=== PATIENT | male | born 1990 | race Caucasian/White ===

== ENCOUNTER 2018-03-20 21:55 | Emergency (ER) | END 2018-03-21 02:12 | disposition home or self-care (01) ==

== ENCOUNTER 2018-08-06 15:29 | Emergency (ER) | payer OTHER ==
[~2018-08-06] VITALS: Ht 177.8 cm; Wt 83.6 kg
[~2018-08-06 15:29] MED LIST: NAPR-985 PO; POLY10DR19 LEFT EYE
[2018-08-06 15:32] VITALS: Ht 177.8 cm; Wt 83.6 kg
--- NOTE | 2018-08-06 17:48 | ERD ---
ER Documentation Chief Complaint Chief Complaint AP since Saturday with N/V/diarrhea HPI 28-year-old male, presents the emergency complaining of diffuse abdominal pain that started 3 days ago, associated with nausea, vomiting and nonbloody nonmucous diarrhea. Patient has been taking [id number] medication without improvement of the symptoms. He denies fevers, no chills, no chest pain, no shortness of breath ROS All systems reviewed and are negative except as per history of present illness. Medications Home Meds Active Scripts Ranitidine Hcl* (Zantac*) 150 Mg Tablet, 150 MG PO BID PRN for EPIGASTRIC PAIN, #10 TAB Prov:FLO MONACO MD 08/06/18 Acetaminophen* (Tylenol*) 325 Mg Tablet, 2 TAB PO Q8 PRN for PAIN AND OR ELEVATED TEMP, #20 TAB Prov:FLO MONACO MD 08/06/18 Ciprofloxacin Hcl* (Ciprofloxacin Hcl*) 500 Mg Tablet, 500 MG PO BID for 7 Days, TAB Prov:FLO MONACO MD 08/06/18 Naproxen* (Naprosyn*) 500 Mg Tablet, 500 MG PO BID PRN for PAIN AND/OR INFLAMMATION, #30 TAB Prov:RALPH MATIAS 03/21/18 Polymyxin B Sulfate-TMP* (Polymyxin B-TMP Eye Drops*) 10 Ml Drops, 1 DROP LEFT EYE QID for 7 Days, EA Prov:IVAN LYONS DO 11/14/15 Allergies Allergies: Coded Allergies: No Known Allergy (Unverified , 11/14/15) PMhx/Soc Hx Alcohol Use: No Hx Substance Use: Yes Hx Tobacco Use: No FmHx Family History: No diabetes, No coronary disease Physical Exam Vitals Vital Signs Date Temp Pulse Resp B/P (MAP) Pulse Ox O2 O2 Flow FiO2 Time Delivery Rate 08/06/18 98.2 58 19 132/58 98 Room Air 20:09 (82) 08/06/18 98.6 77 20 122/62 99 15:32 (82) Physical Exam Const: No acute distress Head: Atraumatic Eyes: Normal Conjunctiva ENT: Normal External Ears, Nose and Mouth. Neck: Full range of motion. No meningismus. Resp: Clear to auscultation bilaterally Cardio: Regular rate and rhythm, no murmurs Abd: Soft, tender to palpation in the right lower quadrant, no definitive peritoneal signs. Normal bowel sounds Skin: No petechiae or rashes Back: No midline or flank tenderness Ext: No cyanosis, or edema Neur: Awake and alert Psych: Normal Mood and Affect Result Diagram: 08/06/18183708/06/181836 Results 24 hrs Laboratory Tests Test 08/06/18 18:37 08/06/18 18:38 Urine Color ALEXANDRA Urine Clarity SLIGHTLY CLOUDY Urine pH 5.0 Urine Specific [place] 1.029 Urine Ketones NEGATIVE mg/dL Urine Nitrite NEGATIVE mg/dL Urine Bilirubin NEGATIVE mg/dL Urine Urobilinogen 2+ mg/dL Urine Leukocyte Esterase NEGATIVE [place]/ul Urine Microscopic RBC 1 /HPF Urine Microscopic WBC 10 /HPF Urine Calcium Oxalate Crystals MANY /HPF Urine Mucus MODERATE /HPF Urine Hemoglobin NEGATIVE mg/dL Urine Glucose NEGATIVE mg/dL Urine Total Protein NEGATIVE mg/dl Sodium Level 142 mmol/L Potassium Level 4.0 mmol/L Chloride Level 102 mmol/L Carbon Dioxide Level 30 mmol/L Anion Gap 10 Blood Urea Nitrogen 15 mg/dl Creatinine 0.80 mg/dl Est Glomerular Filtrat Rate mL/min > 60 mL/min Glucose Level 90 mg/dl Calcium Level 9.6 mg/dl Total Bilirubin 1.5 mg/dl Direct Bilirubin 0.00 mg/dl Indirect Bilirubin 1.5 mg/dl Aspartate Amino Transf (AST/SGOT) 124 IU/L Alanine Aminotransferase (ALT/SGPT) 102 IU/L Alkaline Phosphatase 85 IU/L Total Protein 7.4 g/dl Albumin 4.3 g/dl Globulin 3.10 g/dl Albumin/Globulin Ratio 1.38 Lipase 56 U/L White Blood Count 5.3 10^3/ul Red Blood Count 4.82 10^6/ul Hemoglobin 13.7 g/dl Hematocrit 42.4 % Mean Corpuscular Volume 88.0 fl Mean Corpuscular Hemoglobin 28.4 pg Mean Corpuscular Hemoglobin Concent 32.3 g/dl Red Cell Distribution Width 12.2 % Platelet Count 219 10^3/UL Mean Platelet Volume 9.8 fl Immature Granulocytes % 0.200 % Neutrophils % 54.6 % Lymphocytes % 29.8 % Monocytes % 12.9 % Eosinophils % 2.3 % Basophils % 0.2 % Nucleated Red Blood Cells % 0.0 /100WBC Immature Granulocytes # 0.010 10^3/ul Neutrophils # 2.9 10^3/ul Lymphocytes # 1.6 10^3/ul Monocytes # 0.7 10^3/ul Eosinophils # 0.1 10^3/ul Basophils # 0.0 10^3/ul Nucleated Red Blood Cells # 0.0 10^3/ul Current Medications Medications Dose Sig/Vin Start Time Status Last (Trade) Ordered Route PRN Stop Time Admin Dose Reason Admin Sodium 1,000 ml @ Q1H STAT 08/06/18 DC 08/06/18 Chloride 1,000 mls/hr IV 18:09 18:39 08/06/18 19:08 Ondansetron 4 mg ONCE STAT 08/06/18 DC 08/06/18 HCl (Zofran IV 18:09 18:39 Inj) 08/06/18 18:20 Famotidine 20 mg ONCE STAT 08/06/18 DC 08/06/18 (Pepcid Iv) IV 18:09 18:39 08/06/18 18:20 500 mg ONCE ONCE 08/06/18 DC 08/06/18 Ciprofloxacin PO 20:00 19:39 (Cipro) 08/06/18 20:01 DIAGNOSTIC IMAGING REPORT Patient: BAUDILIO DODGE : 1990 Age: 28 Sex: M MR #: [id number] DOS: 08/06/181808 Ordering MD: FLO MONACO MD Location: E Room/Bed: PROCEDURE: CT abdomen and pelvis without contrast. CLINICAL INDICATION: Abdominal Pain TECHNIQUE: CT scan of the abdomen and pelvis without contrast was performed and is reconstructed at 2.5 mm contiguous axial intervals from the dome of the diaphragm to the inferior pubic rami.. The patient was scanned without intravenous contrast. Sagittal and coronal reformatted images were obtained from the axial source images. The calculated radiation dose measures 583 mGy centimeters. The CTDI measures 9.3 mGy. Individualized dose optimization technique was used for the performance of this exam. This included 1. Automated exposure control. 2. Adjustment of the mA and / or kV according to the patient's size. 3. Use of iterative reconstructed technique. COMPARISON: None. FINDINGS: The lung bases are clear of any infiltrate or nodule. No effusion is seen. The liver is of normal size, contour and attenuation with no mass or ductal dilatation. No gallstones are visualized. No splenic, adrenal or pancreatic abnormalities present. Kidneys are of normal size and contour. No hydronephrosis, calculus or masses seen. Ureters are of normal course and caliber with no stone. No bladder mass or stone is present. Prostate and seminal vesicles are normal. There is no aneurysm. No adenopathy is present. No bowel mass or obstruction is present. The appendix is normal. No phlegmon, ascites or pneumoperitoneum is visualized. There is T12-L1 degenerative disc narrowing. IMPRESSION: No evidence of urolithiasis, obstructive uropathy, diverticulitis or appendicitis. .Roberto Carlos Higgins MD, MD Date Time Electronically viewed and signed by .Roberto Carlos Higgins MD, MD on 08/06/2018 19:21 .A/ CC: FLO MONACO MD [phone] Procedures/MDM Vital signs stable. Differential diagnosis include but not limited to: UTI, colitis, gastroenteritis, kidney stones, irritable bowel syndrome, inflammatory bowel syndrome, malabsorption syndrome, cholelithiasis, food intolerance, medic ation side effect, pancreatitis, diverticulitis, bowel obstruction. Physical examination and clinical presentation consistent most likely with acute gastroenteritis with incidental finding of UTI. During the ED course the patient remained stable, no new complaints. The patient received treatment with IV fluids and IV medications presenting overall improvement of the symptoms. Results and clinical impression discussed with the patient who agrees with management. The patient is stable to be treated outpatient and will be discharged home; some side effects of prescribed medications (headache, rash, nausea, vomiting, diarrhea, drowsiness, habituation, bleeding, hypertension, interactions with other medications) were reviewed. Follow up with the primary care provider in the next 48h is recommended. If symptoms persist, worsen or new symptoms develop, then patient should return to the ED immediately. Instructions explained and given directly by me to the patient with acknowledgment and demonstrated understanding. Disclaimer: Inadvertent spelling and grammatical errors are likely due to EHR/dictation software use and do not reflect on the overall quality of patient care. Also, please note that the electronic time recorded on this note does not necessarily reflect the actual time of the patient encounter. Departure Diagnosis: Primary Impression: Abdominal pain Additional Impressions: Acute gastroenteritis UTI (urinary tract infection) Condition: Stable Patient Instructions: Understanding Urinary Tract Infections (UTIs) Additional Instructions: Thank you very much for allowing us to participate in your care. Your health and safety is our top priority at [facility]. Call your primary care doctor TOMORROW for an appointment during the next 2-4 days and bring all the information and medications prescribed. Have prescriptions filled and follow precisely the directions on the label. If the symptoms get worse and your provider is unavailable, return to the Emergency Department immediately. FLO MONACO MD Aug 06, 2018 17:48
[2018-08-06] MEDS ORDERED: ONDANSETRON 4 MG INJ IV STA (18:09)
[2018-08-06] MEDS ORDERED: SOD CHLORIDE 0.9% 1,000 ML IV STA (18:09)
[2018-08-06] MEDS ORDERED: FAMOTIDINE 20 MG INJ IV STA (18:09)
[2018-08-06] MEDS ORDERED: RANI150T35 PO (19:34)
[2018-08-06] MEDS ORDERED: CIPR500T4 PO (19:34)
[2018-08-06] MEDS ORDERED: ACET325T33 PO (19:34)
[2018-08-06] MEDS ORDERED: CIPROFLOXACIN 500 MG TAB PO ONE (20:00)
[2018-08-06 20:09] VITALS: BP 132/58; PULSE 58; RESP 19
== END 2018-08-06 20:12 | disposition home or self-care (01) ==
LOC: FTE 15:29
DX: K52.9 Noninfective gastroenteritis and colitis, unspecified (principal); N39.0 Urinary tract infection, site not specified
CPT/HCPCS: 36415; 74176; 80053; 81001; 83690; 85025; 96361; 96374; 96375; J2405; J7030; Z7502; Z7610; 81003

== ENCOUNTER 2018-11-10 21:11 | Emergency (ER) | payer OTHER ==
[~2018-11-10] VITALS: Ht 182.9 cm; Wt 83.6 kg
[~2018-11-10 21:11] MED LIST changes: +ACET325T33 PO; +CIPR500T4 PO; +RANI150T35 PO
[2018-11-10 21:21] VITALS: Ht 182.9 cm; Wt 83.6 kg
[2018-11-10] MEDS ORDERED: ONDANSETRON 4 MG INJ IV STA ×2 (21:28→22:24)
[2018-11-10] MEDS ORDERED: SOD CHLORIDE 0.9% 1,000 ML IV STA (21:28)
[2018-11-10] MEDS ORDERED: HYDROmorphONE 1 MG/ML SYG IV STA (21:28)
[2018-11-10] MEDS ORDERED: DIAZEPAM 5 MG/ML SYG IV ONE (22:00)
[2018-11-10] MEDS ORDERED: ETOMIDATE 20 MG INJ IV ONE (22:00)
[2018-11-11] MEDS ORDERED: IBUP800T48 PO (00:09)
--- NOTE | 2018-11-11 00:09 | ERD ---
ER Documentation Chief Complaint Chief Complaint LEFT SHOUDLER PAIN HPI This is a 28-year-old male with left shoulder pain status post mechanical fall. He says his shoulder popped out while he was practicing judo. He is unable to b ring his arm and abduct his arm. Is kept in a flexed position above his head. Denies any previous history of shoulder dislocation. Denies any head trauma. Denies any other current complaints. ROS All systems reviewed and are negative except as per history of present illness. Medications Home Meds Discontinued Scripts Ranitidine Hcl* (Zantac*) 150 Mg Tablet, 150 MG PO BID PRN for EPIGASTRIC PAIN, #10 TAB Prov:FLO MONACO MD 08/06/18 Acetaminophen* (Tylenol*) 325 Mg Tablet, 2 TAB PO Q8 PRN for PAIN AND OR ELEVATED TEMP, #20 TAB Prov:FLO MONACO MD 08/06/18 Ciprofloxacin Hcl* (Ciprofloxacin Hcl*) 500 Mg Tablet, 500 MG PO BID for 7 Days, TAB Prov:FLO MONACO MD 08/06/18 Naproxen* (Naprosyn*) 500 Mg Tablet, 500 MG PO BID PRN for PAIN AND/OR INFLAMMATION, #30 TAB Prov:POLLYRALPH VILLAR 03/21/18 Polymyxin B Sulfate-TMP* (Polymyxin B-TMP Eye Drops*) 10 Ml Drops, 1 DROP LEFT EYE QID for 7 Days, EA Prov:SERENAIVAN 11/14/15 Allergies Allergies: Coded Allergies: No Known Allergy (Unverified , 11/14/15) PMhx/Soc Medical and Surgical Hx: pt denies Medical Hx, pt denies Surgical Hx Hx Alcohol Use: No Hx Substance Use: Yes (MARIJUANA ) Hx Tobacco Use: No Smoking Status: Current every day smoker Physical Exam Vitals Vital Signs Date Temp Pulse Resp B/P (MAP) Pulse Ox O2 O2 Flow FiO2 Time Delivery Rate 11/10/18 100 3.0 23:00 11/10/18 98.7 89 24 143/81 100 Room Air 22:06 (101) 11/10/18 99.2 86 18 134/86 98 21:21 (102) Physical Exam Const: No acute distress Head: Atraumatic Eyes: Normal Conjunctiva ENT: Normal External Ears, Nose and Mouth. Neck: Full range of motion. No meningismus. Resp: Clear to auscultation bilaterally Cardio: Regular rate and rhythm, no murmurs Abd: Soft, non tender, non distended. Normal bowel sounds Skin: No petechiae or rashes Back: No midline or flank tenderness Ext: Left arm held in an abducted flexed elbow position above the head. Normal pulses. Neur: Awake and alert Psych: Normal Mood and Affect Result Diagram: 11/10/18212911/10/182129 Results 24 hrs Laboratory Tests Test 11/10/18 21:30 White Blood Count 9.7 10^3/ul Red Blood Count 4.78 10^6/ul Hemoglobin 13.8 g/dl Hematocrit 41.0 % Mean Corpuscular Volume 85.8 fl Mean Corpuscular Hemoglobin 28.9 pg Mean Corpuscular Hemoglobin Concent 33.7 g/dl Red Cell Distribution Width 12.1 % Platelet Count 232 10^3/UL Mean Platelet Volume 10.2 fl Immature Granulocytes % 0.300 % Neutrophils % 65.1 % Lymphocytes % 26.1 % Monocytes % 7.6 % Eosinophils % 0.6 % Basophils % 0.3 % Nucleated Red Blood Cells % 0.0 /100WBC Immature Granulocytes # 0.030 10^3/ul Neutrophils # 6.3 10^3/ul Lymphocytes # 2.5 10^3/ul Monocytes # 0.7 10^3/ul Eosinophils # 0.1 10^3/ul Basophils # 0.0 10^3/ul Nucleated Red Blood Cells # 0.0 10^3/ul Sodium Level 139 mmol/L Potassium Level 3.5 mmol/L Chloride Level 103 mmol/L Carbon Dioxide Level 26 mmol/L Anion Gap 10 Blood Urea Nitrogen 15 mg/dl Creatinine 0.88 mg/dl Est Glomerular Filtrat Rate mL/min > 60 mL/min Glucose Level 99 mg/dl Calcium Level 10.0 mg/dl Current Medications Medications Dose Sig/Vin Start Time Status Last (Trade) Ordered Route PRN Stop Time Admin Dose Reason Admin Sodium 1,000 ml @ Q1H STAT 11/10/18 DC 11/10/18 Chloride 1,000 mls/hr IV 21:28 21:33 11/10/18 22:27 1 mg ONCE STAT 11/10/18 DC 11/10/18 Hydromorphone IV 21:28 21:33 HCl 11/10/18 21:29 (Dilaudid) Ondansetron 4 mg ONCE STAT 11/10/18 DC 11/10/18 HCl (Zofran IV 21:28 21:33 Inj) 11/10/18 21:29 Etomidate 20 mg ONCE ONCE 11/10/18 DC 11/10/18 (Amidate) IV 22:00 22:32 11/10/18 22:01 Diazepam 5 mg ONCE ONCE 11/10/18 DC 11/10/18 (Valium) IV 22:00 22:32 11/10/18 22:01 Ondansetron 4 mg ONCE STAT 11/10/18 DC 11/10/18 HCl (Zofran IV 22:24 22:32 Inj) 11/10/18 22:25 Procedures/MDM X-ray Shoulder 3V Interpreted by me: Bones: No fracture, inferior dislocation noted Joints: Inferior dislocation of the glenohumeral joint Foreign body: None Procedural Sedation: Pre-assessment performed. See preceding complete history and physical for details. Time out performed. See sedation documentation for details. Medication(s): Etomidate Complications: No hypoxic or apneic events Recovered without incident. Greater than 15 minutes of face to face time included in sedation and recovery. Shoulder Reduction by me: Anesthesia: Valium and etomidate Location: Left shoulder Technique: [Scapular manipulation, External rotation, Traction- countertraction, Mario] Results: Synagogue of normal anatomic positioning Compl: Neurovascularly intact post procedure. Sling Assessment: Neurovascularly intact post sling placement with good fit. Post-reduction X-ray Shoulder 3V Interpreted by me: Bones: No fracture Joints: Relocation of previously noted dislocation Foreign body: None Medical decision making: This is a very pleasant patient suffered a inferior di slocation. It is been reduced under conscious sedation. Patient will be discharged home. Follow-up with outpatient orthopedics. Return for any worsening symptoms. Patient is neurovascularly intact Departure Diagnosis: Primary Impression: Inferior dislocation of shoulder Encounter type: initial encounter Laterality: left Qualified Codes: S43.035A - Inferior dislocation of left humerus, initial encounter Condition: Serious ROSAMARIA BETANCURElizabeth Nov 11, 2018 00:09
[2018-11-11 00:30] VITALS: BP 125/85; PULSE 69; RESP 18
== END 2018-11-11 00:39 | disposition home or self-care (01) ==
LOC: E/R 21:11
DX: S43.035A Inferior dislocation of left humerus, initial encounter (principal); F17.210 Nicotine dependence, cigarettes, uncomplicated; W18.39XA Other fall on same level, initial encounter; Y92.9 Unspecified place or not applicable
CPT/HCPCS: 23650; 36415; 71045; 73030; 80048; 85025; 94770; 96374; 96375; 96376; J1170; J2405; J3360; J7030; Z7502; Z7610